=== PATIENT | female | born 1940 | race Caucasian/White ===

== ENCOUNTER 2017-05-01 05:35 | Day surgery (SDC) | payer OTHER ==
[~2017-05-01] VITALS: Ht 162.6 cm; Wt 74.4 kg
[2017-05-01] MEDS ORDERED: PROPOFOL 200MG/ 20ML VIAL (DIPRIVAN) IV ONE (07:25)
[2017-05-01] MEDS ORDERED: BUPIVACAINE /EPINEPHRINE/PF 0.5% 30 ML VIAL INJ ONE (07:25)
[2017-05-01] MEDS ORDERED: KETOROLAC TROMETHAMINE 15 MG VIAL IVP ONE (07:25)
[2017-05-01] MEDS ORDERED: SEVOFLURANE 15 MIN GAS INH ONE (07:25)
[2017-05-01] MEDS ORDERED: DEXAMETHASONE SOD PHOSPHATE 4 MG/ML VIAL IVP ONE (07:25)
[2017-05-01] MEDS ORDERED: fentaNYL CITRATE 250 MCG/5 ML AMP IV ONE (07:25)
[2017-05-01] MEDS ORDERED: ROCURONIUM BROMIDE 10 MG/ML (ZEMURON) IV ONE (07:25)
[2017-05-01] MEDS ORDERED: CLINDAMYCIN PHOSPHATE 900 mg/50mL D5W IV ONE (07:25)
[2017-05-01] MEDS ORDERED: FUROSEMIDE 100 MG/10 ML VIAL IV ONE (07:25)
[2017-05-01] MEDS ORDERED: MIDAZOLAM HCL 5 MG/5 ML VIAL IVP ONE (07:25)
[2017-05-01] MEDS ORDERED: LR 1,000 ML IV.SOLN IV ONE (07:25)
[2017-05-01] MEDS ORDERED: NS 1000 ML BAG IV ONE (07:25)
[2017-05-01] MEDS ORDERED: METOCLOPRAMIDE HCL 10 MG/2 ML VIAL IVP ONE (07:25)
[2017-05-01] MEDS ORDERED: ONDANSETRON HCL 4 MG/2 ML VIAL IVP ONE (07:25)
[2017-05-01] MEDS ORDERED: CLINDAMYCIN 2% VAGINAL CREAM VG ONE (07:25)
[2017-05-01] MEDS ORDERED: POLYMYXIN 500,000/BACIT.10,000 UNITS in NS IRR 1 L IR ONE (08:26)
[2017-05-01] MEDS ORDERED: LR 1,000 ML IV SCH (08:31)
[2017-05-01] MEDS ORDERED: MEPERIDINE HCL/PF 25 MG/ML DISP.SYRIN IVP PRN (08:45)
[2017-05-01] MEDS ORDERED: HYDROmorphone 2 MG/ML VIAL IVP PRN ×2 (08:45)
[2017-05-01] MEDS ORDERED: HYDROmorphone 1 MG INJ. 1 MG/ML AMPUL IVP PRN (08:45)
[2017-05-01] MEDS ORDERED: ONDANSETRON HCL 4 MG/2 ML VIAL IVP PRN (09:45)
[2017-05-01] MEDS: LR 1,000 ML IV SCH ×3 (13:50→23:10)
[2017-05-01] MEDS: CLINDAMYCIN 600 mg/50mL D5W 50 ML IV SCH ×2 (13:50→20:47)
[2017-05-01 16:36] VITALS: BP_SYST 122
[2017-05-01 19:04] VITALS: BP_SYST 103
[2017-05-01] MEDS ORDERED: IBUPROFEN 600 MG TABLET PO PRN (19:30)
[2017-05-01] MEDS: OXYCODONE/ACETAMINOPHEN 5-325 TABLET PO PRN (19:42)
[2017-05-01 20:49] VITALS: BP_SYST 100
[2017-05-01] MEDS ORDERED: SENNOSIDES/DOCUSATE SODIUM 1 TAB TABLET(SENOKOT-S) PO PRN (21:00)
[2017-05-01] MEDS ORDERED: TEMAZEPAM 15 MG CAPSULE PO PRN (21:00)
[2017-05-02 00:03] VITALS: BP_SYST 113
[2017-05-02] MEDS: OXYCODONE/ACETAMINOPHEN 5-325 TABLET PO PRN ×3 (03:32→14:12)
[2017-05-02 03:57] VITALS: BP_SYST 107
[2017-05-02] MEDS: LR 1,000 ML IV SCH ×2 (06:42→14:11)
[2017-05-02 08:03] VITALS: BP_SYST 107
[2017-05-02 12:20] VITALS: BP_SYST 109
[2017-05-02 16:00] VITALS: BP_SYST 108
[2017-05-02 18:03] VITALS: BP_SYST 109
== END 2017-05-02 19:30 | disposition home or self-care (01) ==
LOC: SDS 05:35 → SMU 05:35 → SDS 05-02 19:30
PROVIDERS: ATTEND Specialist
DX: N81.10 Cystocele, unspecified (principal); N81.6 Rectocele; K46.9 Unspecified abdominal hernia without obstruction or gangrene; I10 Essential (primary) hypertension; E78.5 Hyperlipidemia, unspecified; E03.9 Hypothyroidism, unspecified; Z88.0 Allergy status to penicillin; Z88.8 Allergy status to other drugs, medicaments and biological substances; M19.90 Unspecified osteoarthritis, unspecified site; E66.9 Obesity, unspecified; Z98.890 Other specified postprocedural states; I73.9 Peripheral vascular disease, unspecified
CPT/HCPCS: 57265; 71010; 87081; 88304; J1100; J1885; J1940; J2250; J2405; J2704; J2765; J3010; J3490 ×3; J7030; J7120 ×2; 88305

== ENCOUNTER 2022-03-14 06:55 | Emergency (ER) | payer OTHER ==
[~2022-03-14] VITALS: Ht 167.6 cm; Wt 79.4 kg
[2022-03-14 06:56] VITALS: BP_SYST 147
--- NOTE | 2022-03-14 07:00 | NUR ---
BIB BLS TRANSPORT FOR HEAD LAC S/P MECH TRIPPED AND FALL AND HIT HEAD ON SIDE OF THE DRESSER. PT DENIES KO. SHE STATES THAT SHE IS TAKING ASA AT HOME.
[2022-03-14] MEDS ORDERED: DIPHTH,PERTUSS(ACELL),TET VAC 0.5 ML VIAL (Tdap) I.M. ONE (07:15)
[2022-03-14] MEDS ORDERED: BACITRACIN 1 GM OINT TP ONE (07:15)
[2022-03-14] MEDS ORDERED: LIDOCAINE 1% 10 MG/ML, 20 ML MDV INJ ONE (07:15)
--- NOTE | 2022-03-14 07:27 | NUR ---
PT STATES THAT TODAY SHE GOT UP TO USE RESTROOM AND TRIPPED OVER SOMETHING, HIT RIGHT SIDE OF HEAD ON NIGHT STAND, LACERATION NOTED TO RIGHT SIDE OF FOREHEAD/HEAD. DENIES K.O., STATES SHE IMMEDIATELY CALLED FOR HER WHO WAS NOT HOME, TRIED TO STOP THE BLEEDING AND CALLED 911. PT STATES SHE FEELS OK NOW.
[2022-03-14 07:35] LABS: BASOPHILS % (AUTO) 0.4 % (0.0-2.0); EOSINOPHILS % (AUTO) 0.1 % (0.0-4.0); HEMATOCRIT 33.7 % (36-48); LYMPHOCYTES # (AUTO) 0.9 K/uL (1.0-5.5); LYMPHOCYTES % (AUTO) 24.4 % (20.5-51.5); MEAN CORPUSCULAR VOLUME 93 fL (79.0-98.0); MONOCYTES # (AUTO) 0.3 K/uL (0.0-1.0); MONOCYTES % (AUTO) 9.6 % (1.7-9.3); NEUTROPHILS # (AUTO) 2.3 K/uL (1.8-7.7); NEUTROPHILS % (AUTO) 65.5 % (40.0-70.0); PLATELET COUNT (AUTO) 126 K/uL (130-430); RED BLOOD CELL COUNT(AUTO) 3.63 MIL/uL (4.2-6.2); RED CELL DISTRIBUTION WIDTH 13.4 % (9.0-15.0); WHITE BLOOD COUNT (AUTO) 3.5 K/uL (4.8-10.8)
--- NOTE | 2022-03-14 07:40 | NUR ---
ASSISTED WITH CLEANING UP PT AND GOWN PLACED. PT TAKEN TO RADIOLOGY VIA GURNEY
--- NOTE | 2022-03-14 07:51 | NUR ---
RETURNED FROM RADIOLOGY AND PLACED BACK TO BED #6
[2022-03-14 07:54] LABS: ANION GAP 9 (5-15); CALCIUM 8.4 mg/dL (8.4-11.0); CHLORIDE 108 mmol/L (98-107); CREATININE 1.57 mg/dL (0.55-1.30); GLUCOSE 97 mg/dL (70-99); POTASSIUM 3.9 mmol/L (3.5-5.1); UREA NITROGEN, BLOOD 21 mg/dL (8-21)
[2022-03-14 08:00] LABS: ALANINE AMINOTRANSFERASE 15 U/L (12-78); ALBUMIN 3.1 g/dL (3.4-4.8); ASPARTATE AMINOTRANSFERASE 19 U/L (10-37); TOTAL BILIRUBIN 0.5 mg/dL (0.0-1.0)
--- NOTE | 2022-03-14 08:09 | NUR ---
DR [place] AT BEDSIDE FOR PROCEDURE
--- NOTE | 2022-03-14 08:18 | NUR ---
DR [place] AT BEDSIDE FOR SUTURING, DAUGHTER MILLER AT BEDSIDE FOR SUPPORT.
[2022-03-14 08:56] VITALS: BP_SYST 137
--- NOTE | 2022-03-14 08:57 | NUR ---
DRESSING APPLIED BY SKYLA ORTIZ PT TOLERATED IT WELL. PT CHANGED INTO CLOTHING FROM THE HOSPITAL. TAKEN OUT BY WHEELCHAIR TO PRIVATE CAR.
== END 2022-03-14 08:57 | disposition home or self-care (01) ==
LOC: SED 06:55
DX: S01.01XA Laceration without foreign body of scalp, initial encounter (principal); I10 Essential (primary) hypertension; Z88.0 Allergy status to penicillin; Z88.2 Allergy status to sulfonamides; Z79.899 Other long term (current) drug therapy; W01.190A Fall on same level from slipping, tripping and stumbling with subsequent striking against furniture, initial encounter; Y93.89 Activity, other specified; Y92.89 Other specified places as the place of occurrence of the external cause; Y99.8 Other external cause status
CPT/HCPCS: 99284; 70450; 80053; 85025; 85610; 85730; 36415; 76376; 90715; 90471; 12002; J2001

== ENCOUNTER 2022-06-27 05:35 | Day surgery (SDC) | payer OTHER ==
[~2022-06-27] VITALS: Ht 162.6 cm; Wt 72.6 kg
[2022-06-27] MEDS ORDERED: PROPOFOL 200MG/ 20ML VIAL (DIPRIVAN) IV ONE (08:00)
[2022-06-27] MEDS ORDERED: MEPERIDINE 100 MG INJ. 100 MG/ML VIAL ONE (08:00)
[2022-06-27] MEDS ORDERED: fentaNYL CITRATE/PF 100 MCG/2 ML AMP ONE (08:00)
[2022-06-27] MEDS ORDERED: ROCURONIUM BROMIDE 10 MG/ML (ZEMURON) ONE (08:00)
[2022-06-27] MEDS ORDERED: NS IRRIG SOLN 1000 ML IR ONE (08:00)
[2022-06-27] MEDS ORDERED: SUCCINYLCHOLINE CHLORIDE 20 MG/ML(QUELICIN) ONE (08:00)
[2022-06-27] MEDS ORDERED: DEXAMETHASONE SOD PHOSPHATE 4 MG/ML VIAL ONE (08:00)
[2022-06-27] MEDS ORDERED: CLINDAMYCIN PHOSPHATE 600 mg/50mL D5W IV ONE (08:00)
[2022-06-27] MEDS ORDERED: SEVOFLURANE 15 MIN GAS INH ONE (08:00)
[2022-06-27] MEDS ORDERED: NS 1000 ML IV.SOLN IV ONE (08:00)
[2022-06-27] MEDS ORDERED: ROPIVACAINE HCL/PF 5 MG/ML 0.5% 30 ML VIAL ONE ×2 (08:00)
[2022-06-27] MEDS ORDERED: SUGAMMADEX SODIUM 200 MG/2 ML VIAL IV ONE (08:00)
[2022-06-27] MEDS ORDERED: BUPIVACAINE /EPINEPHRINE/PF 0.5% 30 ML VIAL INJ ONE (08:00)
[2022-06-27] MEDS ORDERED: FUROSEMIDE 40 MG/4 ML VIAL ONE (08:00)
[2022-06-27] MEDS ORDERED: ONDANSETRON HCL 4 MG/2 ML VIAL ONE (08:00)
[2022-06-27] MEDS ORDERED: ONDANSETRON HCL 4 MG/2 ML VIAL IVP PRN (09:15)
[2022-06-27] MEDS ORDERED: METOCLOPRAMIDE HCL 10 MG/2 ML VIAL IVP PRN (09:15)
[2022-06-27] MEDS ORDERED: LR 1,000 ML IV SCH (09:15)
[2022-06-27] MEDS ORDERED: KETOROLAC TROMETHAMINE 30 MG VIAL IVP PRN (09:15)
[2022-06-27] MEDS ORDERED: HYDROmorphone 1 MG/ML INJ. CARTRIDGE IVP PRN ×2 (09:15→11:30)
[2022-06-27] MEDS ORDERED: MEPERIDINE HCL/PF 25 MG/ML DISP.SYRIN IVP PRN (09:15)
[2022-06-27 11:44] VITALS: BP_SYST 116
[2022-06-27] MEDS ORDERED: HYDROmorphone 1 MG/ML INJ. CARTRIDGE ONE (12:33)
[2022-06-27] MEDS ORDERED: D5LR 1,000 ML IV SCH (15:15)
[2022-06-27] MEDS: SIMETHICONE 80 MG TAB.CHEW PO SCH ×2 (16:44→23:52)
[2022-06-27] MEDS: OXYCODONE/ACETAMINOPHEN 5-325 TABLET PO PRN ×2 (16:44→22:27)
[2022-06-27] MEDS ORDERED: CLINDAMYCIN 900 mg/50mL D5W 50 ML IV SCH (20:00)
[2022-06-27] MEDS: CLINDAMYCIN PHOS 900 MG/ D5W 50 ML PREMIX IV SCH (20:12)
[2022-06-28] MEDS: CLINDAMYCIN PHOS 900 MG/ D5W 50 ML PREMIX IV SCH ×2 (04:06→12:00)
[2022-06-28] MEDS: OXYCODONE/ACETAMINOPHEN 5-325 TABLET PO PRN ×2 (09:40→13:16)
[2022-06-28] MEDS: SIMETHICONE 80 MG TAB.CHEW PO SCH ×2 (09:41→13:15)
[2022-06-28] MEDS ORDERED: OXYC-128 PO (10:16)
== END 2022-06-28 14:06 | disposition home or self-care (01) ==
LOC: SDS 05:35 → SMU 05:35 → SPU 14:48 → SDS 06-28 14:06
PROVIDERS: ATTEND Specialist
DX: N99.3 Prolapse of vaginal vault after hysterectomy (principal); N95.2 Postmenopausal atrophic vaginitis; I10 Essential (primary) hypertension; E78.5 Hyperlipidemia, unspecified; I25.10 Atherosclerotic heart disease of native coronary artery without angina pectoris; Z88.0 Allergy status to penicillin; Z88.8 Allergy status to other drugs, medicaments and biological substances; Z86.73 Personal history of transient ischemic attack (TIA), and cerebral infarction without residual deficits; Z79.899 Other long term (current) drug therapy; Z20.822 Contact with and (suspected) exposure to COVID-19
CPT/HCPCS: 36415 ×2; 57283; 87426; 64488; U0003; J3490 ×5; J1100; J1940; J2405; J2704; J0330; J3010; J1170; J2175; J7120 ×3; J7030; C1727; C1781

== ENCOUNTER 2022-08-02 06:38 | Emergency (ER) | payer OTHER ==
[~2022-08-02] VITALS: Ht 162.6 cm; Wt 72.6 kg
[~2022-08-02 06:38] MED LIST: OXYC-128 PO
[2022-08-02 06:51] VITALS: BP_SYST 155
[2022-08-02 09:45] VITALS: BP_SYST 127
== END 2022-08-02 09:42 | disposition home or self-care (01) ==
LOC: SED 06:38
DX: S09.90XA Unspecified injury of head, initial encounter (principal); S01.21XA Laceration without foreign body of nose, initial encounter; S41.111A Laceration without foreign body of right upper arm, initial encounter; S81.811A Laceration without foreign body, right lower leg, initial encounter; I10 Essential (primary) hypertension; Z88.0 Allergy status to penicillin; Z88.1 Allergy status to other antibiotic agents; Z88.2 Allergy status to sulfonamides; Z79.899 Other long term (current) drug therapy; W22.8XXA Striking against or struck by other objects, initial encounter; Y93.89 Activity, other specified; Y92.89 Other specified places as the place of occurrence of the external cause; Y99.8 Other external cause status
CPT/HCPCS: 70450-TC; 76376; 93005; 99284

== ENCOUNTER 2023-01-11 19:25 | Emergency (ER) | payer OTHER ==
[~2023-01-11] VITALS: Ht 162.6 cm; Wt 70.3 kg
[2023-01-11 20:29] VITALS: BP_SYST 141; PULSE 72; RESP 19; TEMP 97.6; O2SAT 97
[2023-01-11 23:21] LABS: BASOPHILS % (AUTO) 0.4 % (0.0-2.0); HEMATOCRIT 35.4 % (36-48); HEMOGLOBIN 11.6 g/dL (12.0-16.0); LYMPHOCYTES # (AUTO) 0.6 K/uL (1.0-5.5); MEAN CORPUSCULAR HEMOGLOBIN 31 pg (27-31); MEAN CORPUSCULAR HGB CONC 33 % (32-36); MEAN CORPUSCULAR VOLUME 95 fL (79.0-98.0); MONOCYTES # (AUTO) 0.3 K/uL (0.0-1.0); MONOCYTES % (AUTO) 8.9 % (1.7-9.3); NEUTROPHILS # (AUTO) 2.6 K/uL (1.8-7.7); NEUTROPHILS % (AUTO) 73.7 % (40.0-70.0); PLATELET COUNT (AUTO) 138 K/uL (130-430); RED BLOOD CELL COUNT(AUTO) 3.72 MIL/uL (4.2-6.2); RED CELL DISTRIBUTION WIDTH 15.1 % (9.0-15.0); WHITE BLOOD COUNT (AUTO) 3.5 K/uL (4.8-10.8)
[2023-01-11 23:32] LABS: ALANINE AMINOTRANSFERASE 9 U/L (12-78); ALBUMIN 2.8 g/dL (3.4-4.8); ANION GAP 8 (5-15); ASPARTATE AMINOTRANSFERASE 18 U/L (10-37); CALCIUM 7.9 mg/dL (8.4-11.0); CARBON DIOXIDE 26 mmol/L (23-29); CHLORIDE 104 mmol/L (98-107); CREATININE 1.62 mg/dL (0.55-1.30); GLUCOSE 87 mg/dL (74-106); POTASSIUM 3.1 mmol/L (3.5-5.1); SODIUM SERUM 138 mmol/L (136-145); TOTAL BILIRUBIN 0.6 mg/dL (0.0-1.0); TOTAL PROTEIN, SERUM 6.2 g/dL (6.4-8.3); UREA NITROGEN, BLOOD 25 mg/dL (8-21)
[2023-01-12] MEDS ORDERED: POTASSIUM CHLORIDE 20 MEQ/PKT PACKET PO ONE
[2023-01-12 01:35] VITALS: BP_SYST 144; PULSE 64; RESP 15; TEMP 98.8; O2SAT 97
== END 2023-01-12 01:35 | disposition home or self-care (01) ==
LOC: SED 19:25
DX: L03.115 Cellulitis of right lower limb (principal); M79.661 Pain in right lower leg; R06.02 Shortness of breath; I10 Essential (primary) hypertension; Z88.0 Allergy status to penicillin; Z88.1 Allergy status to other antibiotic agents; Z88.2 Allergy status to sulfonamides; Z79.899 Other long term (current) drug therapy
CPT/HCPCS: 36415; 71045; 73590-TC; 80053; 83880; 84484; 85025; 93005; 93971; 99285

== ENCOUNTER 2023-09-04 06:07 | Day surgery (SDC) | payer OTHER ==
[~2023-09-04] VITALS: Ht 162.6 cm; Wt 66.2 kg
[2023-09-04] MEDS ORDERED: BUPIVACAINE /PF 0.25% 30 ML VIAL INJ ONE (07:25)
[2023-09-04] MEDS ORDERED: NS IRRIG SOLN 1000 ML IR ONE (07:25)
[2023-09-04] MEDS ORDERED: ONDANSETRON HCL 4 MG/2 ML VIAL ONE (07:25)
[2023-09-04] MEDS ORDERED: LR 1,000 ML IV.SOLN IV ONE (07:25)
[2023-09-04] MEDS ORDERED: MIDAZOLAM HCL 2 MG/2 ML VIAL (VERSED) ONE (07:25)
[2023-09-04] MEDS ORDERED: fentaNYL CITRATE/PF 100 MCG/2 ML AMP ONE (07:25)
[2023-09-04] MEDS ORDERED: LIDOCAINE 1% 10 MG/ML, 20 ML MDV ONE (07:25)
[2023-09-04] MEDS ORDERED: METOCLOPRAMIDE HCL 10 MG/2 ML VIAL ONE (07:25)
[2023-09-04] MEDS ORDERED: HYDROmorphone 2 MG/ML VIAL IVP PRN (08:15)
[2023-09-04] MEDS ORDERED: HYDROmorphone 1 MG/ML INJ. CARTRIDGE IVP PRN (08:15)
[2023-09-04] MEDS ORDERED: NALOXONE HCL 0.4 MG/ML AMP (NARCAN) IVP PRN (08:15)
[2023-09-04] MEDS ORDERED: ONDANSETRON HCL 4 MG/2 ML VIAL IVP PRN (08:15)
[2023-09-04] MEDS ORDERED: LR 1,000 ML IV SCH (08:15)
[2023-09-04] MEDS ORDERED: ACETAMINOPHEN I.V. 1000 MG 100 ML IV ONE (08:50)
[2023-09-04] MEDS ORDERED: OXYCODONE/ACETAMINOPHEN *10*mg/325 mg TABLET PO ONE (10:15)
[2023-09-04] MEDS ORDERED: OXYCODONE/ACETAMINOPHEN *10*mg/325 mg TABLET ONE (10:22)
[2023-09-04 13:23] VITALS: O2SAT 99
[2023-09-04 13:45] VITALS: BP_SYST 115; PULSE 73; RESP 20
== END 2023-09-04 13:30 | disposition home or self-care (01) ==
LOC: SMU 06:07 → SDS 06:07
PROVIDERS: ATTEND Podiatrist Primary Podiatric Medicine
DX: M20.42 Other hammer toe(s) (acquired), left foot (principal); I10 Essential (primary) hypertension; I25.10 Atherosclerotic heart disease of native coronary artery without angina pectoris; E78.5 Hyperlipidemia, unspecified; J44.9 Chronic obstructive pulmonary disease, unspecified; E03.9 Hypothyroidism, unspecified; Z90.710 Acquired absence of both cervix and uterus; Z90.49 Acquired absence of other specified parts of digestive tract; Z90.79 Acquired absence of other genital organ(s); Z98.890 Other specified postprocedural states; Z88.0 Allergy status to penicillin; Z88.2 Allergy status to sulfonamides
CPT/HCPCS: 28285 ×2; 87081; 88305; 88311; J3490; J2765; J3465; J2405; J3010; J7120; C1713; J0131; J2001

== ENCOUNTER 2023-12-23 19:22 | Inpatient (IN) | payer OTHER ==
[~2023-12-23] VITALS: Ht 167.6 cm; Wt 59.9 kg
[2023-12-23 19:25] VITALS: BP_SYST 218; PULSE 138; RESP 30; TEMP 97; O2SAT 85
[2023-12-23] MEDS ORDERED: ALBUTEROL SULFATE 0.083% 2.5 MG/3 ML VIAL.NEB INH ONE (19:30)
[2023-12-23] MEDS ORDERED: IPRATROPIUM BROM 0.5 MG/2.5 ML VIAL.NEB (ATROVENT) INH ONE (19:31)
[2023-12-23] MEDS ORDERED: methylPREDNISolone SOD SUCC/PF 62.5 MG/ML VIAL ONE (19:34)
[2023-12-23] MEDS: NITROGLYCERIN 1 INCH (GM) OINT. TP ONE (19:35)
[2023-12-23] MEDS: methylPREDNISolone SOD SUCC 500 MG/VIAL (Solu-MEDROL) IV ONE (19:36)
[2023-12-23 19:45] LABS: BASOPHILS # (AUTO) 0.2 K/uL (0.0-0.2); BASOPHILS % (AUTO) 2.3 % (0.0-2.0); EOSINOPHILS % (AUTO) 0.1 % (0.0-4.0); HEMOGLOBIN 13.5 g/dL (12.0-16.0); LYMPHOCYTES # (AUTO) 1.8 K/uL (1.0-5.5); LYMPHOCYTES % (AUTO) 24.2 % (20.5-51.5); MEAN CORPUSCULAR HEMOGLOBIN 32 pg (27-31); MEAN CORPUSCULAR HGB CONC 33 % (32-36); MEAN CORPUSCULAR VOLUME 97 fL (79.0-98.0); MONOCYTES # (AUTO) 0.4 K/uL (0.0-1.0); MONOCYTES % (AUTO) 5.9 % (1.7-9.3); NEUTROPHILS % (AUTO) 67.5 % (40.0-70.0); PLATELET COUNT (AUTO) 248 K/uL (130-430); RED BLOOD CELL COUNT(AUTO) 4.23 MIL/uL (4.2-6.2); RED CELL DISTRIBUTION WIDTH 13.4 % (9.0-15.0); WHITE BLOOD COUNT (AUTO) 7.5 K/uL (4.8-10.8)
[2023-12-23 19:58] LABS: ABG O2 SAT% ESTIMATE 99.2 % (94.0-100.0); ALLEN'S TEST POSITIVE (P); BLOOD GAS BASE EXCESS 13.3 mmol/L (-3.0-3.0); BLOOD GAS HCO3 16.7 mmol/L (21.0-27.0); BLOOD GAS PCO2 36.8 mmHg (35.0-45.0); BLOOD GAS PH 7.275 (7.350-7.450); BLOOD GAS PO2 201.9 mmHg (75.0-100.0)
[2023-12-23] MEDS: ALBUTEROL SULFATE 0.083% 2.5 MG/3 ML VIAL.NEB INH ONE (20:01)
[2023-12-23] MEDS: IPRATROPIUM BROM 0.5 MG/2.5 ML VIAL.NEB (ATROVENT) INH ONE (20:02)
[2023-12-23 20:09] LABS: INR 0.9 (0.8-1.2); PROTHROMBIN TIME 9.4 SECS (9.5-12.5)
[2023-12-23 20:14] LABS: ALANINE AMINOTRANSFERASE 21 U/L (12-78); ALBUMIN 3.1 g/dL (3.4-4.8); ANION GAP 11 (5-15); ASPARTATE AMINOTRANSFERASE 33 U/L (10-37); BILIRUBIN,DIRECT 0.2 mg/dL (0.0-0.3); CALCIUM 8.2 mg/dL (8.4-11.0); CARBON DIOXIDE 24 mmol/L (23-29); CHLORIDE 101 mmol/L (98-107); CREATININE 1.86 mg/dL (0.55-1.30); GLUCOSE 201 mg/dL (74-106); POTASSIUM 3.6 mmol/L (3.5-5.1); SODIUM SERUM 136 mmol/L (136-145); TOTAL BILIRUBIN 0.5 mg/dL (0.0-1.0); TOTAL PROTEIN, SERUM 7.7 g/dL (6.4-8.3); UREA NITROGEN, BLOOD 25 mg/dL (8-21)
[2023-12-23 20:25] LABS: BILIRUBIN,URINE NEGATIVE (NEGATIVE); CLARITY/URINE HAZY (CLEAR); COLOR,URINE YELLOW (YELLOW); GLUCOSE,URINE 3+ (NEGATIVE); KETONES,URINE NEGATIVE (NEGATIVE); PH,URINE 6.5 (5.0-8.0); PROTEIN URINE 2+ (NEGATIVE)
[2023-12-23] MEDS: FUROSEMIDE 20 MG/2 ML VIAL IVP ONE (20:25)
[2023-12-23 20:26] LABS: BLOOD, URINE 1+ (NEGATIVE); LEUKOCYTE ESTERASE ,URINE TRACE (NEGATIVE); NITRITE, URINE POSITIVE (NEGATIVE); UROBILINOGEN,URINE 0.2 (0.2-1.0)
[2023-12-23] MEDS: KETOROLAC TROMETHAMINE 30 MG VIAL IVP ONE ×2 (20:38→20:52)
[2023-12-23 20:39] LABS: BACTERIA,URINE MODERATE /HPF (None Seen)
[2023-12-23] MEDS: DIPHENHYDRAMINE INJ 50 MG/ML VIAL IVP ONE ×2 (20:39→20:51)
[2023-12-23] MEDS: METHYLPREDNISOLONE SOD SUCC 40 MG/ML VIAL IVP ONE (20:54)
[2023-12-23] MEDS ORDERED: GABA-331 PO (22:14)
[2023-12-23] MEDS ORDERED: DAPA10TA PO (22:14)
[2023-12-23] MEDS ORDERED: ATOR20TA64 PO (22:14)
[2023-12-23] MEDS ORDERED: CARV3.1246 PO (22:14)
[2023-12-23] MEDS ORDERED: APIX2.5T PO (22:14)
[2023-12-23] MEDS ORDERED: EST1 PO (22:15)
[2023-12-23] MEDS ORDERED: LEVO137T20 PO (22:15)
[2023-12-23] MEDS ORDERED: CYCL10TA24 PO (22:21)
[2023-12-23] MEDS ORDERED: FLUT16SP16 NS (22:21)
[2023-12-23] MEDS ORDERED: FURO-149 PO (22:21)
[2023-12-23] MEDS ORDERED: OMEG100037 PO (22:24)
[2023-12-23] MEDS ORDERED: DOXY25TA49 PO (22:24)
[2023-12-23 22:29] VITALS: BP_SYST 141; PULSE 105; O2SAT 99
[2023-12-23 23:43] VITALS: PULSE 94
[2023-12-24] VITALS (25 sets, daily range): BP systolic 132–177; PULSE 84–108; RESP 12–28; TEMP 97.6–98.2; O2SAT 65–99
[2023-12-24] MEDS: FUROSEMIDE 20 MG/2 ML VIAL IVP SCH (01:43)
[2023-12-24 07:25] LABS: COVID19 ANTIGEN SOFIA FIA NEGATIVE (NEGATIVE)
[2023-12-24 07:26] LABS: INFLUENZA TYPE A Negative (NEGATIVE); INFLUENZA TYPE B NEGATIVE (NEGATIVE)
[2023-12-24] MEDS: ASPIRIN 81 MG TAB.CHEW PO SCH (10:59)
[2023-12-24] MEDS: traMADol HCL HCL 50 MG TABLET (ULTRAM) PO ONE (11:00)
[2023-12-24] MEDS: traMADol HCL HCL 50 MG TABLET (ULTRAM) PO SCH (15:11)
[2023-12-24] MEDS: hydrALAZINE HCL 25 MG TABLET PO SCH (15:12)
[2023-12-24] MEDS ORDERED: NALOXONE HCL 0.4 MG/ML AMP (NARCAN) IVP PRN (19:30)
[2023-12-24] MEDS ORDERED: HYDROmorphone 1 MG/ML INJ. CARTRIDGE IM PRN (19:30)
[2023-12-24 19:58] LABS: ANION GAP 5 (5-15); CALCIUM 8.1 mg/dL (8.4-11.0); CARBON DIOXIDE 30 mmol/L (23-29); CHLORIDE 104 mmol/L (98-107); CREATININE 2.19 mg/dL (0.55-1.30); GLUCOSE 121 mg/dL (74-106); POTASSIUM 3.4 mmol/L (3.5-5.1); SODIUM SERUM 139 mmol/L (136-145); UREA NITROGEN, BLOOD 32 mg/dL (8-21)
[2023-12-24] MEDS: HYDROmorphone 1 MG/ML INJ. CARTRIDGE IV PRN (19:58)
[2023-12-24] MEDS: APIXABAN 2.5 MG TABLET PO SCH (20:59)
[2023-12-24] MEDS ORDERED: APIXABAN 2.5 MG TABLET PO SCH (21:00)
[2023-12-24] MEDS ORDERED: CARVEDILOL 3.125 MG TABLET (COREG) PO SCH (21:00)
[2023-12-24] MEDS: METOPROLOL TARTRATE 50 MG TABLET PO SCH (21:01)
[2023-12-24] MEDS: TEMAZEPAM 7.5 MG CAPSULE PO SCH (21:05)
[2023-12-24] MEDS: LEVOFLOXACIN 250 MG/D5W 50 ML IV SCH (21:34)
[2023-12-24] MEDS: LEVOFLOXACIN 250 MG/D5W 50 ML IV ONE (21:48)
[2023-12-25] VITALS (22 sets, daily range): BP systolic 108–161; PULSE 68–99; RESP 12–18; TEMP 97.1–98.2; O2SAT 91–100
[2023-12-25 05:28] LABS: BASOPHILS % (AUTO) 0.3 % (0.0-2.0); HEMATOCRIT 36.3 % (36-48); LYMPHOCYTES # (AUTO) 0.4 K/uL (1.0-5.5); LYMPHOCYTES % (AUTO) 4.7 % (20.5-51.5); MEAN CORPUSCULAR HEMOGLOBIN 32 pg (27-31); MEAN CORPUSCULAR HGB CONC 33 % (32-36); MEAN CORPUSCULAR VOLUME 97 fL (79.0-98.0); MONOCYTES # (AUTO) 0.6 K/uL (0.0-1.0); MONOCYTES % (AUTO) 6.5 % (1.7-9.3); NEUTROPHILS # (AUTO) 8.2 K/uL (1.8-7.7); NEUTROPHILS % (AUTO) 88.5 % (40.0-70.0); PLATELET COUNT (AUTO) 218 K/uL (130-430); RED BLOOD CELL COUNT(AUTO) 3.75 MIL/uL (4.2-6.2); RED CELL DISTRIBUTION WIDTH 12.9 % (9.0-15.0); WHITE BLOOD COUNT (AUTO) 9.2 K/uL (4.8-10.8)
[2023-12-25 05:45] LABS: ANION GAP 7 (5-15); CALCIUM 8.1 mg/dL (8.4-11.0); CARBON DIOXIDE 28 mmol/L (23-29); CHLORIDE 103 mmol/L (98-107); CREATININE 2.04 mg/dL (0.55-1.30); GLUCOSE 114 mg/dL (74-106); POTASSIUM 3.7 mmol/L (3.5-5.1); SODIUM SERUM 138 mmol/L (136-145); UREA NITROGEN, BLOOD 35 mg/dL (8-21)
[2023-12-25] MEDS: FUROSEMIDE 40 MG/4 ML VIAL IVP ONE (08:13)
[2023-12-25] MEDS ORDERED: cloNIDine HCL 0.1 MG TABLET PO PRN (09:00)
[2023-12-25] MEDS: HONEY WOUND DRESSING 1 EACH TP SCH (09:00)
[2023-12-25] MEDS: ONDANSETRON HCL 4 MG/2 ML VIAL IVP PRN (09:08)
[2023-12-25] MEDS: METHYLPREDNISOLONE SOD SUCC 40 MG/ML VIAL IVP SCH (09:08)
[2023-12-25] MEDS: ATORVASTATIN 20 MG TABLET PO SCH (09:09)
[2023-12-25] MEDS: POTASSIUM CHLORIDE 20 MEQ TABLET.ER PO ONE (09:10)
[2023-12-25] MEDS: METOPROLOL TARTRATE 25 MG TABLET PO SCH (09:12)
[2023-12-25] MEDS ORDERED: NALOXONE HCL 0.4 MG/ML AMP (NARCAN) IVP PRN (12:15)
[2023-12-25 13:09] LABS: HEMATOCRIT 37.2 % (36-48); HEMOGLOBIN 12.3 g/dL (12.0-16.0); LYMPHOCYTES # (AUTO) 0.3 K/uL (1.0-5.5); MEAN CORPUSCULAR HEMOGLOBIN 32 pg (27-31); MEAN CORPUSCULAR HGB CONC 33 % (32-36); MEAN CORPUSCULAR VOLUME 95 fL (79.0-98.0); MONOCYTES # (AUTO) 0.2 K/uL (0.0-1.0); MONOCYTES % (AUTO) 2.5 % (1.7-9.3); NEUTROPHILS # (AUTO) 7.2 K/uL (1.8-7.7); NEUTROPHILS % (AUTO) 93.5 % (40.0-70.0); PLATELET COUNT (AUTO) 222 K/uL (130-430); RED CELL DISTRIBUTION WIDTH 12.9 % (9.0-15.0); WHITE BLOOD COUNT (AUTO) 7.7 K/uL (4.8-10.8)
[2023-12-25] MEDS: HYDROcodone/ACETAMIN 10-325 MG TAB PO PRN (13:19)
[2023-12-25] MEDS: FUROSEMIDE 40 MG/4 ML VIAL IVP SCH (13:21)
[2023-12-25 14:15] LABS: ALANINE AMINOTRANSFERASE 21 U/L (12-78); ALBUMIN 2.7 g/dL (3.4-4.8); ANION GAP 7 (5-15); ASPARTATE AMINOTRANSFERASE 18 U/L (10-37); CALCIUM 8.2 mg/dL (8.4-11.0); CARBON DIOXIDE 31 mmol/L (23-29); CHLORIDE 100 mmol/L (98-107); CREATININE 2.01 mg/dL (0.55-1.30); GLUCOSE 119 mg/dL (74-106); POTASSIUM 4.4 mmol/L (3.5-5.1); SODIUM SERUM 138 mmol/L (136-145); TOTAL BILIRUBIN 0.6 mg/dL (0.0-1.0); UREA NITROGEN, BLOOD 35 mg/dL (8-21)
[2023-12-25] MEDS: LEVOFLOXACIN 250 MG/D5W 50 ML IV SCH (21:39)
[2023-12-26] VITALS (23 sets, daily range): BP systolic 92–148; PULSE 66–77; RESP 11–33; TEMP 96.7–98; O2SAT 93–100
[2023-12-26 04:44] LABS: BASOPHILS % (AUTO) 0.1 % (0.0-2.0); HEMATOCRIT 35.5 % (36-48); HEMOGLOBIN 11.8 g/dL (12.0-16.0); LYMPHOCYTES # (AUTO) 0.3 K/uL (1.0-5.5); LYMPHOCYTES % (AUTO) 5.7 % (20.5-51.5); MEAN CORPUSCULAR HEMOGLOBIN 32 pg (27-31); MEAN CORPUSCULAR HGB CONC 33 % (32-36); MEAN CORPUSCULAR VOLUME 95 fL (79.0-98.0); MONOCYTES # (AUTO) 0.1 K/uL (0.0-1.0); MONOCYTES % (AUTO) 2.5 % (1.7-9.3); NEUTROPHILS # (AUTO) 4.8 K/uL (1.8-7.7); NEUTROPHILS % (AUTO) 91.7 % (40.0-70.0); PLATELET COUNT (AUTO) 230 K/uL (130-430); RED BLOOD CELL COUNT(AUTO) 3.75 MIL/uL (4.2-6.2); RED CELL DISTRIBUTION WIDTH 13.1 % (9.0-15.0); WHITE BLOOD COUNT (AUTO) 5.2 K/uL (4.8-10.8)
[2023-12-26 05:32] LABS: ANION GAP 7 (5-15); CALCIUM 8.3 mg/dL (8.4-11.0); CARBON DIOXIDE 31 mmol/L (23-29); CHLORIDE 97 mmol/L (98-107); CREATININE 2.26 mg/dL (0.55-1.30); GLUCOSE 141 mg/dL (74-106); POTASSIUM 4.1 mmol/L (3.5-5.1); SODIUM SERUM 135 mmol/L (136-145); UREA NITROGEN, BLOOD 40 mg/dL (8-21)
[2023-12-26] MEDS ORDERED: FIORCET PO PRN (10:00)
[2023-12-26] MEDS ORDERED: EXCEDRIN EXTRA STRENGTH PO PRN (11:45)
[2023-12-26] MEDS: FUROSEMIDE 20 MG/2 ML VIAL IVP ONE (13:43)
[2023-12-26] MEDS: DOCUSATE SODIUM 100 MG CAPSULE PO ONE (13:48)
[2023-12-26] MEDS: QUEtiapine FUMARATE 25 MG TABLET PO ONE (13:48)
[2023-12-26] MEDS ORDERED: FUROSEMIDE 40 MG TABLET PO SCH ×2 (17:00→21:00)
[2023-12-26] MEDS: QUEtiapine FUMARATE 25 MG TABLET PO SCH (20:55)
[2023-12-26] MEDS: FUROSEMIDE 20 MG/2 ML VIAL IVP SCH (20:57)
[2023-12-27] VITALS (15 sets, daily range): BP systolic 123–154; PULSE 66–78; RESP 13–28; TEMP 96.5–97.7; O2SAT 93–100
[2023-12-27 04:40] LABS: BASOPHILS % (AUTO) 0.1 % (0.0-2.0); HEMATOCRIT 35.9 % (36-48); HEMOGLOBIN 11.7 g/dL (12.0-16.0); LYMPHOCYTES # (AUTO) 0.4 K/uL (1.0-5.5); LYMPHOCYTES % (AUTO) 6.9 % (20.5-51.5); MEAN CORPUSCULAR HEMOGLOBIN 31 pg (27-31); MEAN CORPUSCULAR HGB CONC 33 % (32-36); MEAN CORPUSCULAR VOLUME 95 fL (79.0-98.0); MONOCYTES # (AUTO) 0.1 K/uL (0.0-1.0); MONOCYTES % (AUTO) 2.7 % (1.7-9.3); NEUTROPHILS # (AUTO) 4.8 K/uL (1.8-7.7); NEUTROPHILS % (AUTO) 90.3 % (40.0-70.0); PLATELET COUNT (AUTO) 219 K/uL (130-430); RED BLOOD CELL COUNT(AUTO) 3.77 MIL/uL (4.2-6.2); RED CELL DISTRIBUTION WIDTH 12.8 % (9.0-15.0); WHITE BLOOD COUNT (AUTO) 5.3 K/uL (4.8-10.8)
[2023-12-27 05:06] LABS: ALBUMIN 2.7 g/dL (3.4-4.8); ANION GAP 4 (5-15); ASPARTATE AMINOTRANSFERASE 15 U/L (10-37); CALCIUM 8.5 mg/dL (8.4-11.0); CARBON DIOXIDE 35 mmol/L (23-29); CHLORIDE 98 mmol/L (98-107); CREATININE 2.43 mg/dL (0.55-1.30); GLUCOSE 134 mg/dL (74-106); POTASSIUM 4.1 mmol/L (3.5-5.1); SODIUM SERUM 137 mmol/L (136-145); TOTAL BILIRUBIN 0.6 mg/dL (0.0-1.0); TOTAL PROTEIN, SERUM 6.8 g/dL (6.4-8.3); UREA NITROGEN, BLOOD 46 mg/dL (8-21)
[2023-12-27 06:17] LABS: ALANINE AMINOTRANSFERASE 18 U/L (12-78)
[2023-12-27] MEDS: DOCUSATE SODIUM 100 MG CAPSULE PO SCH (09:23)
[2023-12-27] MEDS ORDERED: METO25TA6 PO (11:50)
[2023-12-27] MEDS ORDERED: LEVO250T73 PO (11:50)
[2023-12-27] MEDS ORDERED: FURO-149 PO (11:50)
[2023-12-28] MEDS ORDERED: FUROSEMIDE 40 MG TABLET PO SCH (09:00)
== END 2023-12-27 14:10 | disposition home health service (06) | DRG 193 ==
LOC: SED 19:22 → SIC 22:14
PROVIDERS: ADMIT Specialist; ATTEND Specialist
PROC: 5A0935A Assistance with Respiratory Ventilation, Less than 24 Consecutive Hours, High Flow/Velocity Cannula (ICD-10-PCS; principal; 2023-12-23)
PROC: 5A09357 Assistance with Respiratory Ventilation, Less than 24 Consecutive Hours, Continuous Positive Airway Pressure (ICD-10-PCS; 2023-12-23)
PROC: 5A09357 Assistance with Respiratory Ventilation, Less than 24 Consecutive Hours, Continuous Positive Airway Pressure (ICD-10-PCS; 2023-12-25)
DX: J18.9 Pneumonia, unspecified organism (principal); I50.33 Acute on chronic diastolic (congestive) heart failure; J96.01 Acute respiratory failure with hypoxia; I13.0 Hypertensive heart and chronic kidney disease with heart failure and stage 1 through stage 4 chronic kidney disease, or unspecified chronic kidney disease; I16.1 Hypertensive emergency; I69.354 Hemiplegia and hemiparesis following cerebral infarction affecting left non-dominant side; N17.9 Acute kidney failure, unspecified; N39.0 Urinary tract infection, site not specified; I25.10 Atherosclerotic heart disease of native coronary artery without angina pectoris; I48.91 Unspecified atrial fibrillation; E03.9 Hypothyroidism, unspecified; E78.5 Hyperlipidemia, unspecified; I34.0 Nonrheumatic mitral (valve) insufficiency; N18.31 Chronic kidney disease, stage 3a; E11.40 Type 2 diabetes mellitus with diabetic neuropathy, unspecified; E11.22 Type 2 diabetes mellitus with diabetic chronic kidney disease; Z96.651 Presence of right artificial knee joint; Z88.1 Allergy status to other antibiotic agents; Z88.0 Allergy status to penicillin; Z95.1 Presence of aortocoronary bypass graft; Z90.710 Acquired absence of both cervix and uterus; Z87.440 Personal history of urinary (tract) infections; Z88.5 Allergy status to narcotic agent; Z88.8 Allergy status to other drugs, medicaments and biological substances; Z79.899 Other long term (current) drug therapy; Z90.49 Acquired absence of other specified parts of digestive tract; Z79.01 Long term (current) use of anticoagulants; Z87.891 Personal history of nicotine dependence
CPT/HCPCS: 36415; 36600; 70450-TC; 71045; 76770; 78579; 78580; 80048; 80053; 80076; 81000; 81001; 81015; 82803; 83605; 83735; 83880; 84484; 85025; 85379; 85610; 85730; 87040; 87081; 87086; 87186; 93005; 93306; 94070; 94640; 94660; 94760; 97110-GP; 97116-GP; 97530-GP; 99291; A9539; A9540; J1030; J1170; J1200; J1885; J1940; J1956; J2405; J2930